=== PATIENT | female | born 1970 | race African-American/Black ===

== ENCOUNTER 2017-04-06 21:00 | Observation (INO) | payer OTHER ==
[~2017-04-06 21:00] MED LIST: ARMO30TA PO
[2017-04-06 23:00] VITALS: PULSE 94
[2017-04-06] MEDS ORDERED: ACETAMINOPHEN 325 MG TAB PO PRN (23:15)
[2017-04-06 23:39] VITALS: BP 104/65; PULSE 75; RESP 16; TEMP 98.6; O2SAT 94
[2017-04-07 03:28] VITALS: BP 104/73; PULSE 70; RESP 18; TEMP 97.8; O2SAT 94
[2017-04-07] MEDS ORDERED: ACETAMINOPHEN 500 MG CPLT PO PRN (07:30)
[2017-04-07] MEDS ORDERED: SODIUM CHLORIDE 0.9% FLUSH 10 ML FLUSH IV FLUSH PRN (07:30)
[2017-04-07 07:49] VITALS: BP 121/79; PULSE 76; RESP 19; TEMP 97.6; O2SAT 94
--- NOTE | 2017-04-07 07:59 | HHI.HP ---
[facility] Primary Care Physician Dr. Anand Keller Chief Complaint Chest pain History of Present Illness 46-year-old female history of hypo-thyroidism presents to emergency room for further evaluation of chest pain. Onset 1 week ago. Location left anterior chest, left inframammary and substernal area. Characterized as "spasms." No associated symptoms. Endorses 2 days nausea with 3 episodes of nonbloody emesis, not associated during chest pain episodes. Duration of episodes approximately 30 minutes. Hurts to take a deep breath. Particular movements makes spasms worse intermittently. No known trauma to area. No known relieving factors. Endorses she originally thought pain was related to her scoliosis and/or acid reflux. Never diagnosed with acid reflux, although she occasionally takes [id number] medication as needed for symptoms. Denied any feelings of burning in epigastric area or sour taste however endorses she has felt ingestion and has been taking Pepcid daily for the past week without relief. Review of Systems General: Increased gradual fatigue x3 months. No weakness, fever, chills, recent travel, or recent illness. Has been in her general state of health other than fatigue and increased weight gain over the past 23 months. States she is compliant with hypothyroidism medication although changed from Synthroid to [place] Thyroid at her request earlier this year. HEENT: No GONZALEZ, no vision changes, no nasal congestion or drainage, no dysphasia CV: As stated above. Denies any current chest pain or pressure. No palpitations, intermittent leg pain, or dizziness RESP: No SOB, cough, wheeze, or recent URI. No history of asthma or PE. GI: Nausea 2 days. 3 episodes of emesis over the past 2 days. No bowel changes, diarrhea, constipation, pain, distention, or blood in the stool. No change in appetite, reports unintentional weight gain over past 2-3 months. : No dysuria, urgency, frequency EXT: No lower leg edema, no paraesthesias MS: No discomfort or change in ROM NEURO: No change in memory, dizziness, difficulty with balance, LOC, motor/ sensory deficits PSYCH: No anxiety, depression, or situational stress. SKIN: No rashes, no concerning lesions Past Family Social History Allergies: Coded Allergies: No Known Allergies (Unverified , 04/06/17) Past Medical History Scoliosis, hypothyroidism Past Surgical History Thyroidectomy, hysterectomy with ovariectomy Reported Medications Active Reported [place] Thyroid (Thyroid) 30 Mg Tab 30 Mg PO DAILY Active Ordered Medications Current Medications Medications (Trade) Dose Ordered Sig/Alejandro Route Start Time Stop Time Status Last Admin (Tylenol) 650 mg Q6HR PRN PO 04/06/17 23:15 04/06/17 23:46 (Tylenol) 500 mg Q4H PRN PO 04/07/17 07:30 (Zofran Inj) 4 mg Q6H PRN IV 04/07/17 08:00 (Nitrostat Sl) 0.4 mg Q5M PRN SL 04/07/17 08:00 (Aspirin) 325 mg DAILY PO 04/07/17 09:00 Family History Noncontributory for early onset cardiovascular disease Social History No known diabetes, hyperlipidemia, or hypertension. Lifelong nonsmoker. Denies any alcohol or illegal drug use. 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 Endorses working frequent mandatory overtime, sometimes working 10, 12 hrs. shifts in a row. Past cardiac testing Normal Exercise stress test "many years ago." States stress test was performed due to complaints of chest pain. Physical Exam Vital Signs Vital Signs Date Time Temp Pulse Resp B/P Pulse Ox O2 Delivery O2 Flow Rate FiO2 04/07/17 07:49 97.6 76 19 121/79 94 04/07/17 03:28 97.8 70 18 104/73 94 04/06/17 23:39 98.6 75 16 104/65 94 04/06/17 23:00 94 Physical Exam GENERAL: Alert WN, WD, NAD, pleasant, obese, female HEAD: NC, AT EYES: Sclera clear, conjunctiva without injection, pupils equal and round ENT: Mucous membranes pink and moist NECK: Supple, no masses, trachea midline CV: RRR, without murmur, rub, gallop, no JVD, S1-S2 no S3-S4. RESP: Clear lungs throughout bilateral, no crackles, wheeze, rhonchi, symmetrical chest rise, nonlabored, able to speak in full sentences ABD: Soft, NT, ND, no masses, positive bowel tones BACK: No CVAT. scoliosis EXT: Pulses +24, no dependent edema MS: Normal tone 4 extremities, nontender, no obvious deformities, full range of motion NEURO: CN II through CN XII grossly intact, motor strength 5/5, gait WNL PSYCH: A+O 3, pleasant affect, appropriate speech, appropriate mood and affect , insight and judgment SKIN: Normal turgor, normal texture, no lesions, no rashes, even hair distribution Laboratory Lab work completed in [facility]. CBC and CMP unremarkable. 3 troponins negative. TSH 46.8. HCG quantitative3. Imaging CTAinterpreted by radiologist. Negative for PE. Right lobe liver steatosis versus mass. Outpatient ultrasound or MRI recommended. (CTA completed [place] [facility]) Course EKGs 3 EKGs- Assessment and Plan Assessment and Plan #1 Chest painadmitted to chest pain center. Transfer from [facility] to [place] [facility]. Ruled out with 3 sets of cardiac enzymes, EKGs, and monitored overnight. Seen and evaluated by Dr. Wally Raymundo. Chemical stress test ordered for this a.m. M.D. discussed with patient in length further cardiac testing is warranted. Patient agreeable to plan of care. If stress test is unremarkable she'll be later discharged this afternoon and follow -up with her PCP. #2 Hypothyroidismpatient encouraged to follow-up with PCP early next week for titration of either [place] thyroid or to switch to levothyroxine. #3 GERDOmeprazole 40mg daily prescription given as discharge CTA Findings recommend outpatient ultrasound and/or MRI to reevaluate right lobe liver steatosis verses mass. Report given to patient and encouraged follow up with PCP Latoya Crabtree April 07, 2017 07:58
[2017-04-07] MEDS ORDERED: NITROGLYCERIN 0.4 MG SL 25 TABS/BTL SL PRN (08:00)
[2017-04-07] MEDS ORDERED: ONDANSETRON HCL 4 MG/2 ML VIAL IV PRN (08:00)
[2017-04-07 08:03] VITALS: PULSE 68
[2017-04-07] MEDS ORDERED: ASPIRIN 325 MG TAB PO SCH (09:00)
[2017-04-07] MEDS ORDERED: SODIUM CHLORIDE 0.9% FLUSH 10 ML FLUSH IV FLUSH SCH (09:00)
[2017-04-07 09:06] VITALS: BP 121/79; PULSE 76; RESP 19; TEMP 97.6; O2SAT 94
[2017-04-07] MEDS ORDERED: THYROID 30 MG TAB PO SCH ×2 (09:30)
[2017-04-07] MEDS ORDERED: REGADENOSON INJ 0.4 MG/5 ML SYR ONE (09:38)
--- NOTE | 2017-04-07 10:50 | RADRPT ---
EXAM DATE/TIME: 04/07/2017 08:59 [facility] COMPARISON: No previous studies available for comparison. INDICATIONS : Left sided chest pain radiating to left arm for one week. Angina. DOSE: 25.5 mCi Tc99m Myoview at stress. 8.2 mCi Tc99m Myoview at rest. 0.4 mg Lexiscan STRESS SYMPTOMS: Shortness of breath. EJECTION FRACTION: 68% MEDICAL HISTORY : Hypercholesterolemia. SURGICAL HISTORY : Thyroidectomy. section. Hysterectomy. ENCOUNTER: Initial ACUITY: 1 week PAIN SCALE: 6/10 LOCATION: Substernal chest TECHNIQUE: The patient underwent pharmacologic stress with infusion of prescribed dose. Continuous ECG tracing was monitored during stress. Gated SPECT imaging was performed after stress and conventional SPECT i maging was performed at rest. The examination was performed on a SPECT/CT scanner, both attenuation and non-corrected datasets were reviewed. FINDINGS: DISTRIBUTION: The maximum perfused segment at stress is in the inferior wall. PERFUSION STUDY: The pattern of perfusion at stress is within normal limits. GATED STUDY: There is intact wall motion and thickening without hypokinetic or dyskinetic segments. CONCLUSION: 1. No reversibility identified to suggest ischemia. 2. Normal wall motion with ejection fraction 68%. RISK CATEGORY: Low (<1% Annual Mortality Rate) Dawson Villaseñor MD on April 07, 2017 at 10:45 Board Certified Radiologist. This report was verified electronically.
--- NOTE | 2017-04-07 11:30 | HHI.DCPOC ---
Discharge Care Plan Diagnosis: (1) Atypical chest pain (2) Hypothyroidism (3) GERD (gastroesophageal reflux disease) Goals to Promote Your Health * To prevent worsening of your condition and complications * To maintain your health at the optimal level Directions to Meet Your Goals Take your medications as prescribed Follow your dietary instruction Follow activity as directed Keep your appointments as scheduled Take your immunizations and boosters as scheduled If your symptoms worsen call your PCP, if no PCP go to Urgent Care Center or Emergency Room Smoking is Dangerous to Your Health. Avoid second hand smoke Call the 24-hour hour crisis hotline for domestic abuse at Latoya Crabtree April 07, 2017 11:30
[2017-04-07] MEDS ORDERED: OMEP40CA2 PO (11:31)
--- NOTE | 2017-04-07 12:57 | TR ---
Date Performed: 04/07/2017 Time Performed: 09:50:40 DOCTOR: Wally Raymundo DRUG LIST: CLINICAL HISTORY: REASON FOR TEST: Angina REASON FOR ENDING: OBSERVATION: CONCLUSION: Lexiscan stress test was performed under standard four minute protocol. Radionuclid e was injected one minute prior to ending the test. No electrocardiographic abormalities were present to suggest ischemia. Nuclear imaging and interpretation are pending. COMMENTS:
== END 2017-04-07 12:35 | disposition home or self-care (01) ==
LOC: NEDDLT 21:00 → NEDA 21:20 → NEPHCDU 21:21
PROVIDERS: ADMIT Internal Medicine Cardiovascular Disease; ATTEND Internal Medicine Cardiovascular Disease
DX: R07.9 Chest pain, unspecified (principal); E03.9 Hypothyroidism, unspecified; K21.9 Gastro-esophageal reflux disease without esophagitis; E78.00 Pure hypercholesterolemia, unspecified
CPT/HCPCS: 71275; 78452; 80053; 82550; 83690; 83735; 84443; 84484; 84702; 85025; 85610; 93005; 93017; 96360; 99285; A9502; G0378; J2785; J7040; Q9967